=== PATIENT | male | born 1970 | race African-American/Black ===

== ENCOUNTER 2023-12-27 05:13 | Emergency (ER) | payer OTHER ==
[~2023-12-27] VITALS: Ht 177.8 cm; Wt 82.0 kg
[2023-12-27 05:18] VITALS: BP 134/81; PULSE 100; RESP 18; TEMP 98.5; O2SAT 94
[2023-12-27 07:04] LABS: EOSINOPHILS % 0.3 % (0.0-5.0); HEMATOCRIT. 41.2 % (42.0-52.0); HEMOGLOBIN. 14.1 g/dL (14.0-18.0); LYMPHOCYTES % 36.6 % (20.0-50.0); MEAN CORPUSCULAR HEMOGLOBIN 30.1 pg (28.0-32.0); MEAN CORPUSCULAR HGB CONC 34.3 g/dL (31.0-37.0); MEAN CORPUSCULAR VOLUME 87.8 fL (80.0-94.0); MEAN PLATELET VOLUME 7.7 fl (7.4-10.4); MONOCYTES % 7.8 % (2.0-8.0); NEUTROPHILS % 54.3 % (40.0-76.0); PLATELET 375 x1000/uL (130-400); RED BLOOD CELL COUNT 4.69 mill/uL (4.7-6.1); RED CELL DISTRIBUTION WIDTH 13.1 % (11.6-14.6); WHITE BLOOD COUNT 4.6 x1000/uL (4.5-11.0)
[2023-12-27 07:21] LABS: CALCIUM 10.2 mg/dL (8.7-10.4); CHLORIDE 105 mEq/L (98-107); POTASSIUM 3.5 mEq/L (3.5-5.1); SODIUM 138 mEq/L (136-145)
[2023-12-27 07:22] LABS: CARBON DIOXIDE 25 mEq/L (21-32)
[2023-12-27 07:27] LABS: CREATININE 0.9 mg/dL (0.6-1.3); GLUCOSE 111 mg/dL (70-105); UREA NITROGEN BLOOD 9 mg/dL (9-23)
== END 2023-12-27 07:09 | disposition left against medical advice (07) ==
LOC: ER 05:27
DX: F41.9 Anxiety disorder, unspecified (principal)
CPT/HCPCS: 36415; 80048; 85025; 99283